=== PATIENT | male | born 1985 | race Two or more races ===

== ENCOUNTER 2017-04-04 12:00 | Emergency (ER) | payer OTHER ==
--- NOTE | 2017-04-04 12:08 | NUR ---
PATIENT REFUSED TO BE SEEN OR TRIAGE Addendum: 04/04/17 at 1212 by SHAN PATIENT VERBALIZED THAT HE FEELS BETTER NOW AND STATES THAT HE WANTED TO GO HOME. PATIENT WAS TOLD FOR POSSIBLE COMPLICATIONS UP TO INCLUING WHICH COULD OCCUR A RESULT OF LEAVING THE HOSPITAL WITHOUT BEING SEEN BY ER MD. PATIENT STILL DECIDES TO LEAVE THE HOSPITAL.
== END 2017-04-04 12:10 | disposition left against medical advice (07) ==
LOC: ER 12:02
DX: Z53.21 Procedure and treatment not carried out due to patient leaving prior to being seen by health care provider (principal)